=== PATIENT | female | born 1990 | race African-American/Black ===

== ENCOUNTER 2020-11-06 16:52 | Emergency (ER) | payer OTHER ==
[~2020-11-06] VITALS: Ht 165.1 cm; Wt 110.2 kg
[2020-11-06 16:52] VITALS: BP 123/77
[2020-11-06] MEDS ORDERED: NORCO5 PO (17:39)
== END 2020-11-06 18:07 | disposition home or self-care (01) ==
LOC: ER 16:52
DX: S05.01XA Injury of conjunctiva and corneal abrasion without foreign body, right eye, initial encounter (principal); X58.XXXA Exposure to other specified factors, initial encounter; Y93.89 Activity, other specified; Y92.89 Other specified places as the place of occurrence of the external cause; Y99.8 Other external cause status

== ENCOUNTER 2020-12-05 22:30 | Emergency (ER) | payer OTHER ==
[~2020-12-05] VITALS: Ht 172.7 cm; Wt 110.2 kg
[~2020-12-05 22:30] MED LIST: NORCO5 PO
[2020-12-05] MEDS ORDERED: BACTRIM DS TAB1 EACH PO (23:38)
[2020-12-05 23:52] VITALS: BP 110/73
== END 2020-12-05 23:55 | disposition home or self-care (01) ==
LOC: ER 22:30
DX: L02.411 Cutaneous abscess of right axilla (principal); Z90.49 Acquired absence of other specified parts of digestive tract